=== PATIENT | female | born 1970 | race Caucasian/White ===

== ENCOUNTER 2019-09-30 12:53 | Outpatient (CLI) | payer MEDICAID ==
[2019-10-01] MEDS ORDERED: ZANTAC150 MG ORAL (08:37)
[2019-10-01] MEDS ORDERED: IBUPROFEN600 M1 ORAL (08:37)
[2019-10-01] MEDS ORDERED: FLONASE ALLERG9.9 ML NS (08:37)
--- NOTE | 2019-10-01 20:00 | Consultation ---
DATE OF CONSULTATION: 09/30/2019 CONSULTING PHYSICIAN: Orlando Caceres MD. CHIEF COMPLAINT: Change in stool consistency with thin stool, abdominal pain, rectal bleeding, nausea, weight loss. PAST MEDICAL HISTORY: 1. Gastritis. 2. Hemorrhoids. 3. Hep C, status post treatment. PAST SURGICAL HISTORY: 1. Tonsillectomy. 2. Ectopic . MEDICATIONS: Nasal spray, Flonase, ibuprofen, ranitidine. FAMILY HISTORY: Significant for mother side having pancreatic cancers, breast cancers, rectal cancers. SOCIAL HISTORY: Patient is a social drinker. Quit tobacco usage about 8 years ago. Denies IV drug abuse. ALLERGIES: No known drug allergies. REVIEW OF SYSTEMS: Positive for thin stools, abdominal pain, rectal bleeding, nausea, weight loss. Patient cannot quantify this weight loss. PHYSICAL EXAMINATION: GENERAL: Well-developed female, in no acute distress. HEENT: Normocephalic, atraumatic. HEENT: Sclerae anicteric. NECK: Supple. No evidence of obvious lymphadenopathy. CARDIOVASCULAR: Regular rate and rhythm. Plus S1 and S2. LUNGS: Clear to auscultation bilaterally. ABDOMEN: Positive bowel sounds. Soft and nontender. No rebound. No guarding. No peritoneal sign. EXTREMITIES: No cyanosis, no clubbing, no edema. ASSESSMENT AND PLAN: This is a 49-year-old female with change in bowel habits, rectal bleeding, nausea, weight loss. Needs endoscopy and colonoscopy. Patient was given instruction for both. We will try to get authorization from the insurance and schedule her when the authorization is obtained. Orlando Caceres M.D. DR: ERIN JOB#: [id number] CC:
== END 2019-09-30 14:53 | disposition home or self-care (01) ==
LOC: PAN 12:53
DX: K62.5 Hemorrhage of anus and rectum (principal); R11.0 Nausea; R63.4 Abnormal weight loss; Z86.19 Personal history of other infectious and parasitic diseases; Z85.07 Personal history of malignant neoplasm of pancreas; Z79.899 Other long term (current) drug therapy
CPT/HCPCS: G0463